=== PATIENT | male | born 1995 | race Caucasian/White ===

== ENCOUNTER 2023-10-25 21:58 | Emergency (ER) | payer OTHER ==
[~2023-10-25] VITALS: Ht 167.6 cm; Wt 93.0 kg
[2023-10-25 22:03] VITALS: BP 134/82; PULSE 89; RESP 16; TEMP 97.5; O2SAT 99
[2023-10-25 22:08] VITALS: BP 134/82; PULSE 89; RESP 16; TEMP 97.5; O2SAT 99
[2023-10-25] MEDS: BACITRACIN OINT 500 UNITS/GM PKT TP ONE (22:13)
[2023-10-25] MEDS: LIDOCAINE MPF 1% 10 MG/ML VIAL INJ ONE (22:13)
[2023-10-26] MEDS ORDERED: CEPH-588 PO (00:13)
[2023-10-26] MEDS ORDERED: BACI-418 TP (00:15)
[2023-10-26] MEDS ORDERED: MORPHINE SULFATE 4 MG/ML SYR IM SCH (02:00)
== END 2023-10-26 01:00 | disposition home or self-care (01) ==
LOC: MED 21:58
DX: S61.214A Laceration without foreign body of right ring finger without damage to nail, initial encounter (principal); S61.210A Laceration without foreign body of right index finger without damage to nail, initial encounter; Z79.2 Long term (current) use of antibiotics; Z79.899 Other long term (current) drug therapy; W25.XXXA Contact with sharp glass, initial encounter; Y93.89 Activity, other specified; Y92.89 Other specified places as the place of occurrence of the external cause; Y99.8 Other external cause status
CPT/HCPCS: 12001; 73130; 99283; J2001

== ENCOUNTER 2023-10-26 17:02 | Emergency (ER) | payer OTHER ==
[~2023-10-26] VITALS: Ht 170.2 cm; Wt 100.2 kg
[~2023-10-26 17:02] MED LIST: BACI-418 TP; CEPH-588 PO
[2023-10-26 17:16] VITALS: BP 154/87; PULSE 87; RESP 16; TEMP 98.7; O2SAT 97
[2023-10-26 18:35] VITALS: BP 154/87; PULSE 87; RESP 16; TEMP 98.7; O2SAT 97
== END 2023-10-26 18:35 | disposition home or self-care (01) ==
LOC: MED 17:02
DX: S61.212D Laceration without foreign body of right middle finger without damage to nail, subsequent encounter (principal); R03.0 Elevated blood-pressure reading, without diagnosis of hypertension; Z48.00 Encounter for change or removal of nonsurgical wound dressing; Z79.2 Long term (current) use of antibiotics; Z79.899 Other long term (current) drug therapy; X58.XXXD Exposure to other specified factors, subsequent encounter
CPT/HCPCS: 99281

== ENCOUNTER 2023-11-07 09:36 | Emergency (ER) | payer OTHER ==
[~2023-11-07] VITALS: Ht 165.1 cm; Wt 99.8 kg
[2023-11-07 10:03] VITALS: BP 141/90; PULSE 71; RESP 16; TEMP 97.6; O2SAT 98
== END 2023-11-07 11:11 | disposition home or self-care (01) ==
LOC: MED 09:36
DX: S61.210D Laceration without foreign body of right index finger without damage to nail, subsequent encounter (principal); S61.214D Laceration without foreign body of right ring finger without damage to nail, subsequent encounter; Z48.00 Encounter for change or removal of nonsurgical wound dressing; Z79.899 Other long term (current) drug therapy; X58.XXXD Exposure to other specified factors, subsequent encounter
CPT/HCPCS: 99281